=== PATIENT | male | born 2005 | race Caucasian/White ===

== ENCOUNTER 2023-05-14 12:32 | Emergency (ER) | payer BC, SELFPAY ==
[2023-05-14 12:34] VITALS: BP 141/65
--- NOTE | 2023-05-14 13:14 | ED.GENMED ---
History of Present Illness
General
Chief Complaint: Abdominal Symptoms
Source: patient and family
Time Seen by Provider: 05/14/23 13:04
Travel History
Have you had any contact with someone who has COVID-19?: No
Do you have any symptoms of coronavirus? Fever > 100 degrees, chills, cough, shortness of breath, sore throat, loss of taste or smell, muscle aches, or headache?: No
History of Present Illness
History of Present Illness:
18-year-old male with past medical history of asthma and a previous spontaneous pneumothorax presenting to the emergency department for evaluation after he was diagnosed with flu yesterday, symptoms started yesterday, given Tamiflu but states
throughout the evening and into today has had persistent nausea and vomiting, diffuse body aches, burning sensation in chest, headache and generally feeling unwell. Due to the persistent nausea and vomiting patient was brought to the ER by mother
for further evaluation and treatment. No known sick contacts. No other concerns. Patient did not get flu vaccine this year.
Past History
Past History
ED Past Medical History: Asthma and Other (Spontaneous pneumothorax)
ED Past Surgical History: Tonsilectomy
Social History
Tobacco: Non-smoker
Alcohol: Occasional
Drug: None
Personal: Single
Living: with family
Review of Systems
Review of Systems
All Other Systems: ROS reviewed and negative except as documented in HPI and ROS
Phy Exam
Physical Exam
Physical Exam:
GENERAL: Alert , ill-appearing but nontoxic
EYE: conjunctiva clear
NECK: Supple
ENT: o/p clr, mmm.
CARDIAC: Regular rate and rhythm
LUNGS: Clear breath sounds bilaterally, no acute respiratory distress, no wheezes/rales/rhonchi
Abdomen: Soft, nontender, nondistended
NEUROLOGICAL: Alert and oriented
SKIN: Warm and dry, skin intact.
MUSCULOSKELETAL: well perfused.
PSYCH: Normal and appropriate interaction.
Scores
Heart Failure Risk
Heart Failure Risk Score: Not Applicable
Heart Score for Chest Pain Patients
STEMI patient?: Not applicable
Withdrawal Assessment of Alcohol
Withdrawal Assessment Completed?: Not applicable
Course
Orders/Labs/Results
Orders:
Orders
05/14/23 13:04
0.9% Sodium Chloride 1000 ml [Nss] 1,000 ml IV BOLUS
Ondansetron Injectable [Zofran] 4 mg IV NOW STA
05/14/23 13:13
Ketorolac [Toradol] 30 mg IV NOW STA
05/14/23 13:50
Complete Blood Count/With Diff Urgent
Comprehensive Metabolic Panel Urgent
05/14/23 15:06
0.9% Sodium Chloride 1000 ml [Nss] 1,000 ml IV BOLUS
Acetaminophen [Tylenol] 1,000 mg PO NOW STA
Abnormal Lab Results
05/14/23
13:50
WBC 10.9 H 10^3/uL
(4.8-10.8)
MCH 31.4 H pg
(27.0-31.0)
MPV 10.8 H fL
(7.4-10.4)
Abs Immat Gran (auto) 0.1 H 10^3/uL
(0-0.05)
Absolute Neuts (auto) 9.0 H 10^3/uL
(1.4-6.5)
Absolute Lymphs (auto) 0.7 L 10^3/uL
(1.2-3.4)
Absolute Monos (auto) 1.1 H 10^3/uL
(0.1-0.6)
Neutrophils % 82.4 H %
(42.2-75.2)
Lymphocytes % 6.3 L %
(20.5-51.1)
Monocytes % 10.3 H %
(1.7-9.3)
BUN 8 L mg/dl
(9-20)
05/14/23 13:50
05/14/23 13:50
Vital Signs
Initial and Last Documented VS:
Initial Vital Signs
Temp Pulse Resp BP Pulse Ox
99.4 F 119 18 141/65 97
05/14/23 12:34 05/14/23 12:34 05/14/23 12:34 05/14/23 12:34 05/14/23 12:34
Last Documented Vital Signs
Temp Pulse Resp BP Pulse Ox
101 F H 119 18 113/59 97
05/14/23 15:32 05/14/23 12:34 05/14/23 12:34 05/14/23 15:39 05/14/23 15:45
MDM/Problems Addressed
Differential Diagnosis Includes:
Influenza, electrolyte derangement, dehydration
MDM/Problems Addressed:
18-year-old male present emergency department for evaluation after being diagnosed with flu yesterday, persistent nausea vomiting and inability tolerate p.o. today. Patient is ill-appearing but overall nontoxic. He is tachycardic and feels warm to
the touch. Will treat with fluids, Zofran, Toradol. Lab work ordered. Reassessment following
*Pulse Oximetry
Patient hypoxic: no
*Critical Care Note
Total Time (30-74mins, 75-104mins- exclusive of procedures): Not Applicable
Patient Management
Escalation/DeEscalation of care consider admission/obs:
Patient feeling mostly improved following 1 L of fluids. Will order additional liter following. He is also noting a mild headache. Additional 1 g p.o. Tylenol ordered.
Patient was able to tolerate p.o. challenge. Feeling improved with fluids and meds. Stable for discharge home. Prescription for Zofran sent to pharmacy. Aware of return precautions but otherwise stable for discharge home.
ED Attending Note
-
Portions of this chart may have been created with voice recognition software.� Occasional wrong word or��sound alike� substitutions may have occurred due to the inherent limitations of voice recognition software.
Discharge Plan
Departure
Patient Disposition: Home (Routine Discharge)
Date of Disposition: 05/14/23
Time of Disposition: 15:46
Patient with high blood pressure during this ER visit?: Yes
Discharge Problem:
Influenza, Nausea & vomiting
Instructions: Nausea and Vomiting, Adult (DC)
Prescriptions:
New
ondansetron 4 mg tablet,disintegrating
4 mg PO TIDPRN PRN (Reason: nausea/vomiting) Qty: 9 0RF
No Action
levalbuterol tartrate 1 PUFF HFA aerosol inhaler
2 puff inhalation R Q4HPRN PRN (Reason: wheezing)
fluticasone propion-salmeterol [Advair HFA] 1 PUFF HFA aerosol inhaler
2 puff inhalation R BID PRN (Reason: wheezing)
ondansetron 4 MG tablet,disintegrating
4 mg PO TID Qty: 10 0RF
Referrals:
Mary Lizama CRNP [Family Provider] -
Interventions
Interventions:
*Risk Screen - Suicide Last Done: 05/14/23 12:37
*General Assessment Last Done: 05/14/23 12:37
*Neglect/Abuse Screening Last Done: 05/14/23 12:37
[2023-05-14] MEDS: ZOFRAN 4 MG IV (13:38)
[2023-05-14] MEDS: TORADOL 30 MG IV (13:39)
[2023-05-14] MEDS: NSS 1000 IV ×2 (13:40→15:28)
[2023-05-14 13:57] LABS: % Basophils 0.5 % (0-2); % Immature Granulocytes 0.5 % (0-0.5); % Lymphocytes 6.3 % (20.5-51.1); % Monocytes 10.3 % (1.7-9.3); % Neutrophils 82.4 % (42.2-75.2); Absolute Basophils 0.1 10^3/uL (0-0.2); Absolute Immature Granulocytes 0.1 10^3/uL (0-0.05); Absolute Lymphocytes 0.7 10^3/uL (1.2-3.4); Absolute Monocytes 1.1 10^3/uL (0.1-0.6); Hematocrit 42.8 % (39.0-52.0); Hemoglobin 15.3 g/dL (13.0-18.0); Mean Corp Hgb Conc. 35.7 g/dL (33.0-37.0); Mean Corpuscular Hgb 31.4 pg (27.0-31.0); Mean Corpuscular Volume 87.9 fL (80.0-94.0); Mean Platelet Volume 10.8 fL (7.4-10.4); Nucleated Red Blood Cells % 0 % (-); Platelet Count 222 10^3/uL (130-400); Red Blood Cell Count 4.87 10^6/uL (4.70-6.10); Red Cell Dist. Width 12.1 % (11.5-14.5); White Blood Cell Count 10.9 10^3/uL (4.8-10.8)
[2023-05-14 14:14] LABS: ALT (SGPT) 24 U/L (0-50); AST (SGOT) 30 U/L (17-59); Alkaline Phosphatase 64 U/L (38-126); Blood Urea Nitrogen 8 mg/dl (9-20); Calcium 9.5 mg/dl (8.4-10.2); Carbon Dioxide 27 mmol/L (22-30); Chloride 100 mmol/L (98-107); Glucose 93 mg/dl (70-99); Potassium 3.9 mmol/L (3.5-5.1); Sodium 137 mmol/L (135-145); Total Bilirubin 0.9 mg/dl (0.2-1.3); Total Protein 7.6 g/dl (6.3-8.2); eGFR > 60.00
[2023-05-14] MEDS: TYLENOL 1000 MG PO (15:24)
[2023-05-14 15:39] VITALS: BP 113/59
[2023-05-14 16:00] VITALS: BP 125/71
== END 2023-05-14 16:52 | disposition home or self-care (01) ==
LOC: EMR 12:32
PROVIDERS: Physician Assistant Medical; EMERGENCY PHYSICIAN Emergency Medicine; FAMILY PHYSICIAN Nurse Practitioner Family
DX: J11.1 Influenza due to unidentified influenza virus with other respiratory manifestations (principal); R11.2 Nausea with vomiting, unspecified; R03.0 Elevated blood-pressure reading, without diagnosis of hypertension
CPT/HCPCS: 99284; 96374; 96375; 96361 ×2; 80053; 85025

== ENCOUNTER 2023-07-22 13:14 | Emergency (ER) | payer BC, SELFPAY ==
[2023-07-22 13:18] VITALS: BP 138/85
--- NOTE | 2023-07-22 15:33 | ED.GENMED ---
History of Present Illness
General
Chief Complaint: Skin Surface Trauma
Source: patient
Exam Limitations: none
Time Seen by Provider: 07/22/23 14:53
Nursing documentation reviewed up to this point in time: agreed with
Travel History
Have you had any contact with someone who has COVID-19?: No
Do you have any symptoms of coronavirus? Fever > 100 degrees, chills, cough, shortness of breath, sore throat, loss of taste or smell, muscle aches, or headache?: No
History of Present Illness
History of Present Illness:
18-year-old male presents with a right anterior knee laceration that he sustained when he was running early this morning at 2 AM. Patient had been drinking alcohol. He tripped when he was running and cut his knee on the ground. He was able to get
back up but has had pain because of the skin laceration, he is able to weight-bear. He has not taken anything for the pain. His tetanus shot was in 2019. There is no leakage or bleeding. He is able to flex his knee
Past History
Past History
ED Past Medical History: Asthma and Other (Spontaneous pneumothorax)
ED Past Surgical History: Tonsilectomy
Social History
Tobacco: Non-smoker
Alcohol: Occasional
Drug: None
Personal: Single
Living: with family
Review of Systems
Review of Systems
Allergies reviewed?: Yes
All Other Systems: Not applicable
Phy Exam
Physical Exam
Physical Exam:
GENERAL: Alert , in no apparent distress, comfortable at rest
HEAD: NCAT
CV: 2+ DP pulse right leg
NEUROLOGICAL: Alert and oriented, no focal neuro deficits, , 5/5 strength, sensation intact, ambulation slight limp right leg
SKIN: Warm and dry, irregularly-shaped 2 and half centimeter laceration through epidermis and dermis but not through any muscle, not penetrating the joint capsule, overlying the lateral margin of the patella, no bone visualized
MUSCULOSKELETAL: Right knee laceration, no effusion, flexion with some discomfort likely due to the lacerated skin, no appreciated swelling, no ligamentous injury suspected, no laxity, location of laceration not concerning for joint capsule
penetration
PSYCH: Normal and appropriate interaction.
Course
Orders/Labs/Results
Orders:
Orders
07/22/23 15:13
CR Knee- Right 4 Or More View* Urgent
Comment:
Reason For Exam: right anterior knee laceration
Vital Signs
Initial and Last Documented VS:
Initial Vital Signs
Pulse Resp BP Pulse Ox
92 16 138/85 97
07/22/23 13:18 07/22/23 13:18 07/22/23 13:18 07/22/23 13:18
Last Documented Vital Signs
Temp Pulse Resp BP Pulse Ox
98.1 F 92 16 138/85 97
07/22/23 15:24 07/22/23 13:18 07/22/23 13:18 07/22/23 13:18 07/22/23 13:18
Procedures
Laceration Closure
Right Anterior Knee:
Status of Wound: clean
Description of Wound Edges: ragged and flap-well vascularized
Preparation: cleaned with saline
Anesthesia: 1% Lidocaine with epi
Revision/Debridement: irrigate-direct pressure
Wound exploration: no tendon involvement
Type of Closure: single layer closure
Skin Closure Material: 4-0 nylon
Number of sutures: 4
MDM/Problems Addressed
Differential Diagnosis Includes:
Laceration, knee contusion
MDM/Problems Addressed:
18-year-old male with a knee laceration just over 12 hours old he was running and fell. Patient's tetanus is up-to-date. The wound appears very clean, not overly deep but is slightly gaping, not penetrating the joint capsule, no bone exposure.
Patient does not do well with caring for her wounds and his mom is concerned if we leave this open that it actually could heal worse than if we close it. They are aware of the risks of closure after 8 to 12 hours of being open on extremity
They are requesting sutures. Patient is also noncompliant with antibiotics, he just recently had tendon surgery on his thumb. And mom says that he will not comply with antibiotics that they were given.
\\
xray independently reviewed by me
neg
wound irrigated and well approximated
*Critical Care Note
Total Time (30-74mins, 75-104mins- exclusive of procedures): Not Applicable
ED Attending Note
-
Portions of this chart may have been created with voice recognition software.� Occasional wrong word or��sound alike� substitutions may have occurred due to the inherent limitations of voice recognition software.
Discharge Plan
Departure
Patient with high blood pressure during this ER visit?: No
Condition: Fair
Covid-19: Not Applicable
Discharge Problem:
Laceration of knee
Instructions: Laceration Repair With Stitches (DC)
Prescriptions:
No Action
levalbuterol tartrate 1 PUFF HFA aerosol inhaler
2 puff inhalation R Q4HPRN PRN (Reason: wheezing)
fluticasone propion-salmeterol [Advair HFA] 1 PUFF HFA aerosol inhaler
2 puff inhalation R BID PRN (Reason: wheezing)
ondansetron 4 MG tablet,disintegrating
4 mg PO TID Qty: 10 0RF
ondansetron 4 mg tablet,disintegrating
4 mg PO TIDPRN PRN (Reason: nausea/vomiting) Qty: 9 0RF
Referrals:
Royce Barlow MD [Family Provider] - Follow up in 10 days (7-10 days for suture removal)
Activity Restrictions/Additional Instructions:
KEEP THE WOUND CLEAN AND DRY FOR 24 HOURS
AFTER THAT YOU CAN GET IT WET IN THE BATH/SHOWER TWICE A DAY AND MAKE SURE IT IS CLEAN AND THERE IS NO DRIED BLOOD ON THE STITCHES
APPLY NEOSPORIN AND A BANDAID
THE STITCHES NEED TO BE REMOVED IN ABOUT 7-10 DAYS, SEE YOUR DOCTOR FOR THIS.
THE LAST DAY BEFORE STITCHES OUT, NO OINTMENT, LEAVE OPEN TO AIR
WATCH FOR SIGNS OF INFECTION AND RETURN NEEDED FOR PAIN, SWELLING, REDNESS, DRAINAGE, BLEEDING.
MOTRIN NEEDED FOR PAIN.
Interventions
Interventions:
*Risk Screen - Suicide Last Done: 07/22/23 13:18
*General Assessment Last Done: 07/22/23 13:18
*ED COVID-19 Vaccine History Last Done: 07/22/23 13:18
ED-Skin Assessment Last Done: 07/22/23 15:44
Discharge Date and Time
Print Language: ARABIC
== END 2023-07-22 16:33 | disposition home or self-care (01) ==
LOC: EMR 13:14
PROVIDERS: EMERGENCY PHYSICIAN Student in an Organized Health Care Education/Training Program; FAMILY PHYSICIAN Family Medicine
DX: S81.011A Laceration without foreign body, right knee, initial encounter (principal); W01.0XXA Fall on same level from slipping, tripping and stumbling without subsequent striking against object, initial encounter; Y93.02 Activity, running; Z91.199 Patient's noncompliance with other medical treatment and regimen due to unspecified reason
CPT/HCPCS: 99283; 12001; 73564

== ENCOUNTER → 2023-08-27 12:15 | Outpatient (REF) | payer BC, SELFPAY | LOC: RAD 12:15 | PROVIDERS: ATTENDING PHYSICIAN Physician Assistant | DX: R05.1 Acute cough (principal) | CPT/HCPCS: 71046 ==

== ENCOUNTER → 2024-02-26 06:48 | Outpatient (REF) | payer BC, SELFPAY ==
[2024-02-26 07:54] LABS: % Basophils 0.9 % (0-2); % Eosinophils 1.1 % (0-6); % Immature Granulocytes 0.5 % (0-0.5); % Lymphocytes 36.2 % (20.5-51.1); % Monocytes 9.4 % (1.7-9.3); % Neutrophils 51.9 % (42.2-75.2); Absolute Basophils 0.1 10^3/uL (0-0.2); Absolute Eosinophils 0.1 10^3/uL (0-0.7); Absolute Lymphocytes 2.3 10^3/uL (1.2-3.4); Absolute Monocytes 0.6 10^3/uL (0.1-0.6); Absolute Neutrophils 3.4 10^3/uL (1.4-6.5); Hematocrit 40.8 % (39.0-52.0); Hemoglobin 14.1 g/dL (13.0-18.0); Mean Corp Hgb Conc. 34.6 g/dL (33.0-37.0); Mean Corpuscular Hgb 31.1 pg (27.0-31.0); Mean Corpuscular Volume 89.9 fL (80.0-94.0); Nucleated Red Blood Cells % 0 % (-); Platelet Count 211 10^3/uL (130-400); Red Blood Cell Count 4.54 10^6/uL (4.70-6.10); Red Cell Dist. Width 12.5 % (11.5-14.5); White Blood Cell Count 6.5 10^3/uL (4.8-10.8)
[2024-02-26 08:24] LABS: ALT (SGPT) 16 U/L (0-50); AST (SGOT) 19 U/L (17-59); Albumin 4.8 g/dl (3.5-5.0); Alkaline Phosphatase 48 U/L (38-126); Blood Urea Nitrogen 13 mg/dl (9-20); Calcium 9.5 mg/dl (8.4-10.2); Carbon Dioxide 29 mmol/L (22-30); Chloride 101 mmol/L (98-107); Glucose 96 mg/dl (70-99); Potassium 4.4 mmol/L (3.5-5.1); Sodium 142 mmol/L (135-145); Total Bilirubin 1.5 mg/dl (0.2-1.3); Total Protein 6.9 g/dl (6.3-8.2); eGFR > 60.00
[2024-02-27 17:19] LABS: Iron 178 ug/dl (49-181)
[2024-02-27 17:28] LABS: Percent Saturation 59 % (20-50); Total Iron Binding Capacity 300 ug/dl (261-462)
[2024-02-27 17:55] LABS: Ferritin 55.3 ng/ml (17.9-464.0)
[2024-02-27 18:26] LABS: Folate 6.6 ng/ml (2.76-20)
[2024-02-27 19:25] LABS: Vitamin B12 187 pg/ml (239-931)
== END ==
LOC: REG 06:48
PROVIDERS: ATTENDING PHYSICIAN Nurse Practitioner Family
DX: R11.0 Nausea (principal); Z86.19 Personal history of other infectious and parasitic diseases; R11.10 Vomiting, unspecified; K21.9 Gastro-esophageal reflux disease without esophagitis
CPT/HCPCS: 36415; 80053; 82607; 82728; 82746; 83540; 83550; 84443; 85025; 86618

== ENCOUNTER → 2024-04-07 07:33 | Outpatient (REF) | payer BC, SELFPAY ==
[2024-04-07 08:15] LABS: % Basophils 0.6 % (0-2); % Eosinophils 0.6 % (0-6); % Immature Granulocytes 0.5 % (0-0.5); % Lymphocytes 40.3 % (20.5-51.1); Absolute Lymphocytes 2.6 10^3/uL (1.2-3.4); Absolute Monocytes 0.6 10^3/uL (0.1-0.6); Absolute Neutrophils 3.2 10^3/uL (1.4-6.5); Hemoglobin 13.8 g/dL (13.0-18.0); Mean Corp Hgb Conc. 34.5 g/dL (33.0-37.0); Mean Corpuscular Hgb 30.9 pg (27.0-31.0); Mean Corpuscular Volume 89.7 fL (80.0-94.0); Nucleated Red Blood Cells % 0 % (-); Platelet Count 228 10^3/uL (130-400); Red Blood Cell Count 4.46 10^6/uL (4.70-6.10); Red Cell Dist. Width 12.5 % (11.5-14.5); White Blood Cell Count 6.5 10^3/uL (4.8-10.8)
[2024-04-07 09:06] LABS: ALT (SGPT) 19 U/L (0-50); AST (SGOT) 22 U/L (17-59); Albumin 4.7 g/dl (3.5-5.0); Alkaline Phosphatase 51 U/L (38-126); Blood Urea Nitrogen 15 mg/dl (9-20); Calcium 9.3 mg/dl (8.4-10.2); Carbon Dioxide 30 mmol/L (22-30); Chloride 99 mmol/L (98-107); Glucose 93 mg/dl (70-99); Potassium 4.2 mmol/L (3.5-5.1); Sodium 139 mmol/L (135-145); Total Bilirubin 0.8 mg/dl (0.2-1.3); Total Protein 6.9 g/dl (6.3-8.2); eGFR > 60.00
== END ==
LOC: REG 07:33
PROVIDERS: ATTENDING PHYSICIAN Nurse Practitioner Family
DX: R17 Unspecified jaundice (principal); R71.8 Other abnormality of red blood cells
CPT/HCPCS: 36415; 80053; 85025

== ENCOUNTER → 2024-04-18 13:06 | Outpatient (REF) | payer BC, SELFPAY ==
[2024-04-18 16:09] LABS: Folate 4.7 ng/ml (2.76-20); Vitamin B12 396 pg/ml (239-931)
== END ==
LOC: REG 13:06
PROVIDERS: ATTENDING PHYSICIAN Nurse Practitioner Family
DX: E53.8 Deficiency of other specified B group vitamins (principal)
CPT/HCPCS: 36415; 82607; 82746; 86340

== ENCOUNTER → 2024-09-05 06:49 | Outpatient (REF) | payer BC, SELFPAY ==
[2024-09-05 08:56] LABS: % Basophils 1.1 % (0-2); % Eosinophils 0.7 % (0-6); % Immature Granulocytes 0.5 % (0-0.5); % Lymphocytes 28.5 % (20.5-51.1); % Monocytes 9.6 % (1.7-9.3); % Neutrophils 59.6 % (42.2-75.2); Absolute Basophils 0.1 10^3/uL (0-0.2); Absolute Lymphocytes 1.6 10^3/uL (1.2-3.4); Absolute Monocytes 0.5 10^3/uL (0.1-0.6); Absolute Neutrophils 3.4 10^3/uL (1.4-6.5); Hematocrit 39.2 % (39.0-52.0); Hemoglobin 13.5 g/dL (13.0-18.0); Mean Corp Hgb Conc. 34.4 g/dL (33.0-37.0); Mean Corpuscular Hgb 30.8 pg (27.0-31.0); Mean Corpuscular Volume 89.3 fL (80.0-94.0); Mean Platelet Volume 11.3 fL (7.4-10.4); Nucleated Red Blood Cells % 0 % (-); Platelet Count 240 10^3/uL (130-400); Red Blood Cell Count 4.39 10^6/uL (4.70-6.10); Red Cell Dist. Width 11.9 % (11.5-14.5); White Blood Cell Count 5.6 10^3/uL (4.8-10.8)
[2024-09-05 09:00] LABS: ALT (SGPT) 13 U/L (0-50); AST (SGOT) 15 U/L (17-59); Albumin 4.6 g/dl (3.5-5.0); Alkaline Phosphatase 49 U/L (38-126); Blood Urea Nitrogen 12 mg/dl (9-20); Calcium 9.8 mg/dl (8.4-10.2); Carbon Dioxide 30 mmol/L (22-30); Chloride 106 mmol/L (98-107); Glucose 89 mg/dl (70-99); HDL Cholesterol 42 mg/dl; LDL Cholesterol, Calculated 57 mg/dl; Sodium 143 mmol/L (135-145); Total Bilirubin 0.7 mg/dl (0.2-1.3); Total Cholesterol 107 mg/dl (50-199); Total Protein 6.7 g/dl (6.3-8.2); Triglyceride 43 mg/dl (10-149); Very Low Density Lipoprotein 8 mg/dl (0-30); eGFR > 60.00
== END ==
LOC: RAD 06:49
PROVIDERS: ATTENDING PHYSICIAN Physician Assistant
DX: R11.0 Nausea (principal)
CPT/HCPCS: 36415; 76700; 80053; 80061; 85025

== ENCOUNTER 2025-01-01 06:24 | Day surgery (SDC) | payer BC, SELFPAY | END 2025-01-01 15:11 | disposition home or self-care (01) | LOC: GI 06:24 | PROVIDERS: ATTENDING PHYSICIAN Internal Medicine Gastroenterology | DX: K22.89 Other specified disease of esophagus (principal); K31.89 Other diseases of stomach and duodenum; K44.9 Diaphragmatic hernia without obstruction or gangrene; R11.2 Nausea with vomiting, unspecified; R63.4 Abnormal weight loss | CPT/HCPCS: 43239; 88305; 88342 ==